=== PATIENT | male | born 1955 | race Two or more races ===

== ENCOUNTER 2017-02-24 04:35 | Emergency (ER) | payer OTHER ==
[~2017-02-24] VITALS: Ht 170.2 cm; Wt 67.1 kg
[2017-02-24 04:35] VITALS: BP 140/78
[2017-02-24] MEDS ORDERED: lisinopril (04:45)
[2017-02-24] MEDS ORDERED: ibuprofen (04:46)
[2017-02-24] MEDS ORDERED: NAPR275T59 PO (05:01)
[2017-02-24] MEDS ORDERED: HYDR-2758 PO (05:01)
[2017-02-24] MEDS ORDERED: METH4TAB2 PO (05:01)
--- NOTE | 2017-02-24 05:01 | PHYS DOC ---
Past History Past Medical History: Hypertension Past Surgical History: No Surgical History Smoking: Non-smoker Alcohol Use: None Drug Use: None Adult General Chief Complaint Chief Complaint: LOWER EXT PAIN HPI HPI This is a pleasant 61-year-old male with history of hypertension who presents with back pain that radiates down the buttocks to the lateral aspect of the right leg into the right lower thigh and foot. It is described as a pain that is tingling with sharp stabbing movements. His respiratory range of motion and bending over. He denies any specific weakness. He denies any saddle anesthesia bowel or bladder incontinence, night sweats, weight loss, or direct trauma. He does admit that he does carry heavy bags and boxes while at work as he works for [employer]. He denies any urinary hematuria, difficulty urinating or nausea, vomiting or diarrhea. The pain is localized to the lateral aspect of the right leg. 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 He is feeling markedly better from that Issue. his pain is moderate at this point in time it does wake him up from sleep and it was usually improved with just time Review of Systems Review of Systems Constitutional: Denies fever or chills [] Eyes: Denies change in visual acuity, redness, or eye pain [] HENT: Denies nasal congestion or sore throat [] Respiratory: Denies cough or shortness of breath [] Cardiovascular: No additional information not addressed in HPI [] GI: Denies abdominal pain, nausea, vomiting, bloody stools or diarrhea [] : Denies dysuria or hematuria [] Musculoskeletal: His only complaint is back pain with radiation to the right lateral leg Integument: Denies rash or skin lesions [] Neurologic: Denies headache, focal weakness or sensory changes [] Endocrine: Denies polyuria or polydipsia [] Allergies Allergies Allergies Coded Allergies Type Severity Reaction Last Updated Verified No Known Drug Allergies 02/24/17 No Physical Exam Physical Exam Vital signs recorded in the nursing note and on the chart patient noted to be hypertensive otherwise normal vital signs. Constitutional: Well developed, well nourished, no acute distress, non-toxic appearance. [] Cardiovascular:Heart rate regular rhythm, no murmur [] Lungs & Thorax: Bilateral breath sounds clear to auscultation [] Abdomen: Bowel sounds normal, soft, no tenderness, no masses, no pulsatile masses. [] Skin: Warm, dry, no erythema, no rash. [] Back: She has slight tenderness over the gluteus davi over the piriformis muscle area of the right gluteus. There is no tenderness to palpation of lateral thigh, Extremities: No tenderness, no cyanosis, no clubbing, ROM intact, no edema. [] Neurologic: Alert and oriented X 3, normal motor function, normal sensory function, no focal deficits noted. Patient has normal DTRs at the knee, negative straight leg raise to 45 both thighs patient has normal sensation to light touch and proprioception over L1 to S1 and disposition of the lower leg. [ ] Psychologic: Affect normal, judgement normal, mood normal. [] EKG EKG [] Radiology/Procedures Radiology/Procedures [] Course & Med Decision Making Course & Med Decision Making Pertinent Labs and Imaging studies reviewed. (See chart for details) she presents with what I believe to be a L5 radiculopathy. Patient has no evidence of cauda equina, doubt renal carcinoma or kidney stones, doubt abdominal aneurysm with no pulsatile masses abdomen no history of heart disease, doubt UTI , pyelonephritis, traumatic fracture, compression injury, epidural abscess, epidural hematoma from trauma, or metastatic cancer. She will be given a course of NSAIDs and anti-inflammatories to include steroids and a short course of narcotics for discomfort encouraged to follow up with his primary care doctor to set up an MRI as an outpatient at the local outpatient imaging center. Patient given precautions and when to return. [] Dragon Disclaimer Dragon Disclaimer This chart was dictated in whole or in part using Voice Recognition software in a busy, high-work load, and often noisy Emergency Department environment. It may contain unintended and wholly unrecognized errors or omissions. Departure Departure: Impression: Primary Impression: Radiculopathy of lumbar region Disposition: 01 HOME, SELF-CARE Condition: IMPROVED Referrals: CHANA SOLO MD (PCP) Patient Instructions: Lumbosacral Radiculopathy, Sciatica Additional Instructions: My discharge plan Follow up: In addition patient is asked to followup with their primary doctor, within a week for followup examination and to address patient's ongoing medical conditions. Patient is advised that in the Emergency Department primary complaints are addressed and only in light of known signs and symptoms. Patient should return immediately to the emergency department if new signs and symptoms develop or patient's condition worsens in any way. At time of discharge patient was in stable condition and had verbalized understanding of the discharge instructions. Scripts Methylprednisolone (MEDROL) 4 Mg Tab.ds.pk 1 PKG PO UD, #1 PKG Prov: NATALEE ABDI MD 02/24/17 Naproxen Sodium (NAPROXEN SODIUM) 275 Mg Tablet 275 MG PO BID for 7 Days, #14 TAB Prov: NATALEE ABDI MD 02/24/17 Hydrocodone Bit/Acetaminophen (HYDROCODONE-APAP 5-325 ) 1 Each Tablet 1 TAB PO PRN Q6HRS Y for PAIN, #10 TAB 0 Refills Prov: NATALEE ABDI MD 02/24/17 NATALEE ABDI MD Feb 24, 2017 05:01
[2017-02-24] MEDS ORDERED: predniSONE 20 MG TABLET PO ONE (05:15)
[2017-02-24] MEDS ORDERED: KETOROLAC 60 MG/2 ML VIAL. IM ONE (05:15)
== END 2017-02-24 05:10 | disposition home or self-care (01) ==
LOC: ER 04:35
DX: M54.16 Radiculopathy, lumbar region (principal); I10 Essential (primary) hypertension
CPT/HCPCS: 96372; 99283; J1885; J7512